=== PATIENT | male | born 1970 | race Caucasian/White ===

== ENCOUNTER 2018-09-06 09:59 | Inpatient (IN) | payer OTHER ==
[2018-09-06 10:38] VITALS: BMI 25.2
--- NOTE | 2018-09-06 11:44 | HP ---
Admission ROS [facility] Chief Complaint: i need help to come in for rehab from alcohol,cocaine and marijuana Allergies/Adverse Reactions: Allergies Allergy/AdvReac Type Severity Reaction Status Date / Time No Known Allergies Allergy Verified 09/06/18 11:19 History of Present Illness: this 48 years old male with alcohol,cocaine and marijuana dependence,for rehab, detox completed at [facility] 09/02/18 09/05/18 completed history of iddm,neuropathy,depression,nicotine dependence, longest period of sobriety is 2 years - Ebola screening Have you traveled outside of the country in the last 21 days: No Have you had contact with anyone from an Ebola affected area: No Have you been sick,other than usual withdrawal symptoms: No Do you have a fever: No - Review of Systems Constitutional: No Symptoms Reported EENT: reports: No Symptoms Reported Respiratory: reports: No Symptoms reported Cardiac: reports: No Symptoms Reported GI: reports: No Symptoms Reported : reports: No Symptoms Reported Musculoskeletal: reports: No Symptoms Reported Integumentary: reports: No Symptoms Reported Neuro: reports: No Symptoms reported Endocrine: reports: No Symptoms Reported, Other (iddm) Hematology: reports: No Symptoms Reported Psychiatric: reports: No Sypmtoms Reported, Judgement Intact, Mood/Affect Appropiate, Depressed Patient History - Patient Medical History Hx Anemia: No Hx Asthma: No Hx Chronic Obstructive Pulmonary Disease (COPD): No Hx Cancer: No Hx Cardiac Disorders: No Hx Congestive Heart Failure: No Hx Hypertension: No Hx Hypercholesterolemia: No Hx Pacemaker: No HX Cerebrovascular Accident: No Hx Seizures: No Hx Dementia: No Hx Diabetes: Yes (IDDM) Hx Gastrointestinal Disorders: No Hx Liver Disease: No Hx Genitourinary Disorders: No Hx Sexually Transmitted Disorders: No Hx Renal Disease (ESRD): No Hx Thyroid Disease: No Hx Human Immunodeficiency Virus (HIV): No (last 2018 negative) Hx Hepatitis C: No Hx Depression: Yes Hx Suicide Attempt: No Hx Schizophrenia: No Other Medical History: no suicidal,no homicidal,neuropathy - Patient Surgical History Past Surgical History: No Hx Neurologic Surgery: No Hx Cataract Extraction: No Hx Cardiac Surgery: No Hx Lung Surgery: No Hx Breast Surgery: No Hx Breast Biopsy: No Hx Abdominal Surgery: No Hx Appendectomy: No Hx Cholecystectomy: No Hx Genitourinary Surgery: No Hx Section: No Hx Orthopedic Surgery: No Anesthesia Reaction: No - PPD History Previous Implant?: Yes Documented Results: Negative w/o proof Implanted On Prior [facility] Admission?: No PPD to be Administered?: Yes - Smoking Cessation Smoking history: Current every day smoker Have you smoked in the past 12 months: Yes Aproximately how many cigarettes per day: 2 Hx Chewing Tobacco Use: No Initiated information on smoking cessation: Yes 'Breaking Loose' booklet given: 09/06/18 - Substance & Tx. History Hx Alcohol Use: Yes Hx Substance Use: Yes Substance Use Type: Alcohol, Cocaine Hx Substance Use Treatment: Yes ([facility] 09/02/18 to 09/05/18) - Substances Abused Crack Route: Smoking Frequency: Daily Amount used: $30-40 Age of first use: 19 Date of Last Use: 09/05/18 Alcohol-beer/rum Route: Oral Frequency: Daily Amount used: 2 cases/2 pts. Age of first use: 13 Date of Last Use: 09/05/18 Family Disease History - Family Disease History Family History: Denies Admission Physical Exam S - Vital Signs Vital Signs: Vital Signs - 24 hr 09/06/18 10:35 Temperature 98 F Pulse Rate 79 Respiratory 18 Rate Blood Pressure 118/72 - Physical General Appearance: Yes: Within Normal Limits HEENTM: Yes: Within Normal Limits, BARBRA, Pharynx Normal Respiratory: Yes: Within Normal Limits, Lungs Clear, Normal Breath Sounds Neck: Yes: Within Normal Limits, Supple, Trachea in good position Breast: Yes: Within Normal Limits Cardiology: Yes: Within Normal Limits, Regular Rhythm, S1, S2 Abdominal: Yes: Normal Bowel Sounds, Non Tender, Flat, Soft Genitourinary: Yes: Within Normal Limits Back: Yes: Within Normal Limits Musculoskeletal: Yes: Within Normal Limits Extremities: Yes: Within Normal Limits, Other (ulcer both big toe left 0.5 cm, right uicer of big toe 0.5 cm,with bluish discoloration of nail) Neurological: Yes: Within Normal Limits, [employer] II-XII NML intact, Fully Oriented, Alert, Motor Strength 5/5 Integumentary: Yes: Within Normal Limits Lymphatic: Yes: Within Normal Limits - Diagnostic (1) Alcohol dependence Current Visit: Yes Status: Acute (2) Cocaine dependence Current Visit: Yes Status: Acute (3) Marijuana dependence Current Visit: Yes Status: Acute (4) IDDM (insulin dependent diabetes mellitus) Current Visit: Yes Status: Chronic (5) Neuropathy Current Visit: Yes Status: Chronic (6) Depression Current Visit: Yes Status: Acute (7) Ulcers of both great toes Current Visit: Yes Status: Acute Cleared for Admission [facility] - Detox or Rehab Claeared for Rehab Admission: Yes [facility] Breath Alcohol Content Breath Alcohol Content: 0 Urine Drug Screen - Results Drug Screen Negative: No Urine Drug Screen Results: THC-Marijuana, ANKIT-Cocaine, BZO-Benzodiazepines Inpatient Rehab Admission - Initial Determination Are CD services needed?: Yes Free of communicable disease: Yes Not in need of hospitalization: Yes - Rehab Admission Criteria Previous failed treatment: Yes Poor recovery environment: Yes Comorbidities: Yes Lacks judgement: No Patient is meeting Inpatient Rehab admission criteria:: Yes
[2018-09-06] MEDS ORDERED: guaiFENesin/D-METHORPHAN HB 10 ML UNIT-DOSE CUPS PO PRN (11:57)
[2018-09-06] MEDS ORDERED: MENTHOL/PHENOL 1 EACH UD MM PRN (11:57)
[2018-09-06] MEDS ORDERED: MAG HYDROX/AL HYDROX/SIMETH 30 ML UNIT-DOSE CUP PO PRN (11:57)
[2018-09-06] MEDS ORDERED: LOPERAMIDE HCL 2 MG CAPSULE PO PRN (11:57)
[2018-09-06] MEDS ORDERED: P-EPHED 60MG/TRIPROLIDI 2.5MG TABLET PO PRN (11:57)
[2018-09-06] MEDS ORDERED: MAGNESIUM CITRATE 300 ML BOTTLE PO PRN (11:57)
[2018-09-06] MEDS ORDERED: MAGNESIUM HYDROX 2400MG/30ML ORAL SUSPENSION 30 ML CUP PO PRN (11:57)
--- NOTE | 2018-09-06 14:08 | HP ---
Psychiatrist Admission - Data Date of interview: 09/06/18 Admission source: [facility] Identifying data: This is the first [facility] admission for this 48 years old single male, unemployedon food stamp, homeless Medical History: Significant for coronary artry disease with stent placement, insulin-dependent diabetes mellitus and neuropathy. Smokes 2 cigarettes daily Psychiatric History: Patient is a very poor, unreliable historian. He ackowledges history of previous psychiatric contacts. First one was for hearing voices and he was prescribed medication. He has no recollection of name of medication. Claims that twice, he was admitted to [facility] psychiatric unit. He could not provide details about both hospitalizations as far as date, reason for admission, diagnosis and medications. Denies ever receiving OPD care. Claims he last saw a psychiatrist recently while in detox @ [facility] and he was prescribed a medication for depression. Again no recollection of name of that medication. Denies previous suicidal attempt. At present, reports feeling mildly depressed and sleeping poorly. Patient was discharged from [facility] yesterday but no referral information is available Physical/Sexual Abuse/Trauma History: Denies history of emotional, physical or sexual abuseas well as DV relationship. No service Additional Comment: Reports history of 2 previous felony arrests/convictions. Reports being currently on parole till June 10, 2019 Vital Signs: Vital Signs - 24 hr 09/06/18 10:35 Temperature 98 F Pulse Rate 79 Respiratory 18 Rate Blood Pressure 118/72 Allergies/Adverse Reactions: Allergies Allergy/AdvReac Type Severity Reaction Status Date / Time No Known Allergies Allergy Verified 09/06/18 11:19 Date of last physical exam: 09/06/18 Concur with the findings of this exam: Yes - Substance Abuse/Tx History Hx Alcohol Use: Yes Hx Substance Use: Yes Substance Use Type: Alcohol (Started drinking akcohol at age 13, consumes 2 pints of rum & 2 cans of beer daily. Last drank on 09/05/18), Cocaine (Started smoking crack cocaine at age 19, consumes $30-40 worth daily. Last smoked on 10/13) Hx Substance Use Treatment: Yes (one recent inpt detox @ [facility]. First inpt rehab) Mental Status Exam - Mental Status Exam Alert and Oriented to: Time, Place, Person Cognitive Function: Fair Patient Appearance: Disheveled Mood: Depressed (mildly) Affect: Appropriate Patient Behavior: Cooperative Speech Pattern: Clear Voice Loudness: Normal Thought Process: Intact, Goal Oriented Thought Disorder: Not Present Hallucinations: Denies Suicidal Ideation: Denies Homicidal Ideation: Denies Insight/Judgement: Fair Sleep: Poorly Appetite: Good Muscle strength/Tone: Normal Gait/Station: Other (Ambulate with mild difficulty due problem with his feet) Psychiatric Findings - Problem List ([place] 1, 2,3) (1) Alcohol dependence Current Visit: Yes Status: Acute (2) Cocaine dependence Current Visit: Yes Status: Acute (3) Nicotine dependence Current Visit: Yes Status: Chronic (4) Psychotic disorder Current Visit: Yes Status: Chronic (5) Substance-induced psychotic disorder Current Visit: Yes Status: Ruled-out (6) Substance induced mood disorder Current Visit: Yes Status: Acute (7) Substance-induced sleep disorder Current Visit: Yes Status: Acute (8) IDDM (insulin dependent diabetes mellitus) Current Visit: Yes Status: Chronic (9) Neuropathy Current Visit: Yes Status: Chronic - Initial Treatment Plan Initial Treatment Plan: 1) Start Seroquel 100 mg po HS. 2) Monitor progress
[2018-09-06] MEDS: SILVER SULFADIAZINE 1% TOP CREAM 50 GM JAR TP SCH ×2 (15:28→22:29)
[2018-09-06] MEDS: INSULIN (NOVOLOG) ASPART 100 UNITS/ML 10ML VIAL SQ SCH ×2 (17:12→21:04)
[2018-09-06] MEDS ORDERED: INSULIN (NOVOLOG) ASPART 100 UNITS/ML 10ML VIAL ONE ×2 (17:56→22:55)
[2018-09-06 18:12] LABS: URINE APPEARANCE CLEAR; URINE BILIRUBIN NEGATIVE (<2.0 mg/dL); URINE COLOR YELLOW; URINE GLUCOSE (UA) 3+ (NEGATIVE); URINE KETONE NEGATIVE (NEGATIVE); URINE LEUK ESTERASE NEGATIVE (NEGATIVE); URINE NITRITE NEGATIVE (NEGATIVE); URINE PROTEIN 1+ (NEGATIVE); URINE UROBILINOGEN NEGATIVE mg/dL (0.2-1.0)
[2018-09-06 18:28] LABS: URINE BACTERIA MANY /hpf (NONE SEEN); URINE HYALINE CAST 3 /lpf; URINE MUCUS RARE
[2018-09-06] MEDS: IBUPROFEN 400 MG TABLET (FP) PO PRN (21:07)
[2018-09-06] MEDS: hydrOXYzine PAMOATE 50 MG CAPSULE (FP) PO PRN (21:07)
[2018-09-06] MEDS: MELATONIN 5 MG TABLETS PO PRN (21:07)
[2018-09-06] MEDS: GABAPENTIN 300 MG CAPSULE (FP) PO SCH (21:07)
[2018-09-06] MEDS: THIAMINE HCL 100 MG TABLET (FP) PO SCH (22:29)
[2018-09-07] MEDS: INSULIN (NOVOLOG) ASPART 100 UNITS/ML 10ML VIAL SQ SCH ×4 (07:06→21:29)
[2018-09-07] MEDS ORDERED: INSULIN (NOVOLOG) ASPART 100 UNITS/ML 10ML VIAL ONE ×3 (07:30→22:19)
[2018-09-07] MEDS: SILVER SULFADIAZINE 1% TOP CREAM 50 GM JAR TP SCH ×2 (10:14→21:29)
[2018-09-07] MEDS: PRENATAL VITAMINS W/ FOLIC ACID TABLET (FP) PO SCH (10:14)
[2018-09-07] MEDS: GABAPENTIN 300 MG CAPSULE (FP) PO SCH ×2 (10:14→21:28)
--- NOTE | 2018-09-07 10:37 | EKG ---
Test Reason : Blood Pressure : / mmHG Vent. Rate : 084 BPM Atrial Rate : 084 BPM P-R Int : 156 ms QRS Dur : 084 ms QT Int : 388 ms P-R-T Axes : 074 101 051 degrees QTc Int : 458 ms NORMAL SINUS RHYTHM RIGHTWARD AXIS ANTEROSEPTAL INFARCT , AGE UNDETERMINED ABNORMAL ECG NO PREVIOUS ECGS AVAILABLE Confirmed by VERA MCPHERSON MD ([id number]) on 09/07/2018 10:36:57 AM Referred By: Confirmed By:VERA MCPHERSON MD
[2018-09-07 11:11] LABS: ALBUMIN 3.8 g/dl (3.4-5.0); ALK PHOS 118 U/L (45-117); ANION GAP 6 MMOL/L (8-16); BILIRUBIN,TOTAL 0.7 mg/dL (0.2-1); BLOOD UREA NITROGEN 22 mg/dL (7-18); CALCIUM 9.3 mg/dL (8.5-10.1); CHLORIDE 98 mmol/L (98-107); CO2 29 mmol/L (21-32); CREATININE 0.9 mg/dL (0.55-1.3); SGOT/AST 20 U/L (15-37); SGPT/ALT 37 U/L (13-61); SODIUM 134 mmol/L (136-145); TOT PROT 7.2 g/dl (6.4-8.2)
[2018-09-07 11:23] LABS: GLUCOSE,RANDOM 377 mg/dL (74-106)
[2018-09-07 11:27] LABS: HEMATOCRIT 43.5 % (35.4-49); HEMOGLOBIN 14.6 GM/dL (11.7-16.9); MCH 30.7 pg (25.7-33.7); MCHC 33.5 g/dl (32.0-35.9); MEAN CELL VOLUME 91.5 fl (80-96); MEAN PLT VOLUME 9.3 fl (7.5-11.1); PLATELET COUNT 288 K/MM3 (134-434); RBC 4.75 M/mm3 (4.00-5.60); RDW 13.6 % (11.9-15.9); WHITE BLOOD COUNT 5.5 K/mm3 (4.0-10.0)
[2018-09-07] MEDS: ACETAMINOPHEN 325 MG TABLET (FP) PO PRN (11:54)
[2018-09-07] MEDS: THIAMINE HCL 100 MG TABLET (FP) PO SCH (21:28)
[2018-09-07] MEDS: hydrOXYzine PAMOATE 50 MG CAPSULE (FP) PO PRN (21:28)
[2018-09-07] MEDS: MELATONIN 5 MG TABLETS PO PRN (21:28)
[2018-09-08] MEDS: INSULIN (NOVOLOG) ASPART 100 UNITS/ML 10ML VIAL SQ SCH ×4 (07:34→22:05)
[2018-09-08] MEDS: GABAPENTIN 300 MG CAPSULE (FP) PO SCH ×2 (10:23→22:02)
[2018-09-08] MEDS: SILVER SULFADIAZINE 1% TOP CREAM 50 GM JAR TP SCH ×2 (10:24→22:03)
[2018-09-08] MEDS: PRENATAL VITAMINS W/ FOLIC ACID TABLET (FP) PO SCH (10:24)
[2018-09-08] MEDS ORDERED: INSULIN (NOVOLOG) ASPART 100 UNITS/ML 10ML VIAL ONE ×3 (11:56→23:12)
[2018-09-08] MEDS: IBUPROFEN 400 MG TABLET (FP) PO PRN (19:30)
[2018-09-08] MEDS: THIAMINE HCL 100 MG TABLET (FP) PO SCH (22:02)
[2018-09-08] MEDS: MELATONIN 5 MG TABLETS PO PRN (22:04)
[2018-09-08] MEDS: ACETAMINOPHEN 325 MG TABLET (FP) PO PRN (23:42)
[2018-09-09] MEDS: IBUPROFEN 400 MG TABLET (FP) PO PRN (01:43)
[2018-09-09] MEDS: INSULIN (NOVOLOG) ASPART 100 UNITS/ML 10ML VIAL SQ SCH ×4 (06:33→21:00)
[2018-09-09] MEDS: GABAPENTIN 300 MG CAPSULE (FP) PO SCH ×2 (10:48→21:00)
[2018-09-09] MEDS: PRENATAL VITAMINS W/ FOLIC ACID TABLET (FP) PO SCH (10:48)
[2018-09-09] MEDS: SILVER SULFADIAZINE 1% TOP CREAM 50 GM JAR TP SCH ×2 (10:48→21:01)
[2018-09-09] MEDS ORDERED: INSULIN (NOVOLOG) ASPART 100 UNITS/ML 10ML VIAL ONE ×2 (11:50→16:22)
--- NOTE | 2018-09-09 14:20 | PN ---
S Progress Note Note: C/O LEGS/FEET PAIN WITH HX PERIPHERAL NEUROPATHY. PT ALSO HAS BOTH GREAT TOES DRESSINGS IN PLACE DUE TO ULCERS. PT REPORTS HE TAKES PERCOCETS FOR PAIN. Vital Signs 09/09/18 07:17 Temperature 97.6 F Pulse Rate 83 Respiratory 18 Rate Blood Pressure 153/99 Laboratory Tests 09/06/18 09/06/18 09/06/18 11:41 17:00 17:11 WBC RBC Hgb Hct MCV MCH MCHC RDW Plt Count MPV Sodium Potassium Chloride Carbon Dioxide Anion Gap BUN Creatinine Creat Clearance w eGFR POC Glucometer 342 443 Random Glucose Calcium Total Bilirubin AST ALT Alkaline Phosphatase Total Protein Albumin Urine Color Yellow Urine Appearance Clear Urine pH 5.0 Ur Specific Mineral 1.031 Urine Protein 1+ H Urine Glucose (UA) 3+ H Urine Ketones Negative Urine Blood Negative Urine Nitrite Negative Urine Bilirubin Negative Urine Urobilinogen Negative Ur Leukocyte Esterase Negative Urine WBC (Auto) 3 Urine RBC (Auto) None Urine Bacteria Many Hyaline Casts 3 Urine Mucus Rare RPR Titer 09/06/18 09/07/18 09/07/18 21:03 06:00 06:00 WBC 5.5 RBC 4.75 Hgb 14.6 Hct 43.5 MCV 91.5 MCH 30.7 MCHC 33.5 RDW 13.6 Plt Count 288 MPV 9.3 Sodium 134 L Potassium 5.0 Chloride 98 Carbon Dioxide 29 Anion Gap 6 L BUN 22 H Creatinine 0.9 Creat Clearance w eGFR > 60 POC Glucometer 359 Random Glucose 377 H* Calcium 9.3 Total Bilirubin 0.7 AST 20 ALT 37 Alkaline Phosphatase 118 H Total Protein 7.2 Albumin 3.8 Urine Color Urine Appearance Urine pH Ur Specific Mineral Urine Protein Urine Glucose (UA) Urine Ketones Urine Blood Urine Nitrite Urine Bilirubin Urine Urobilinogen Ur Leukocyte Esterase Urine WBC (Auto) Urine RBC (Auto) Urine Bacteria Hyaline Casts Urine Mucus RPR Titer 09/07/18 09/07/18 09/07/18 06:00 06:31 11:52 WBC RBC Hgb Hct MCV MCH MCHC RDW Plt Count MPV Sodium Potassium Chloride Carbon Dioxide Anion Gap BUN Creatinine Creat Clearance w eGFR POC Glucometer 162 371 Random Glucose Calcium Total Bilirubin AST ALT Alkaline Phosphatase Total Protein Albumin Urine Color Urine Appearance Urine pH Ur Specific Mineral Urine Protein Urine Glucose (UA) Urine Ketones Urine Blood Urine Nitrite Urine Bilirubin Urine Urobilinogen Ur Leukocyte Esterase Urine WBC (Auto) Urine RBC (Auto) Urine Bacteria Hyaline Casts Urine Mucus RPR Titer Nonreactive 09/07/18 09/07/18 09/08/18 16:45 21:26 06:52 WBC RBC Hgb Hct MCV MCH MCHC RDW Plt Count MPV Sodium Potassium Chloride Carbon Dioxide Anion Gap BUN Creatinine Creat Clearance w eGFR POC Glucometer 319 299 213 Random Glucose Calcium Total Bilirubin AST ALT Alkaline Phosphatase Total Protein Albumin Urine Color Urine Appearance Urine pH Ur Specific Mineral Urine Protein Urine Glucose (UA) Urine Ketones Urine Blood Urine Nitrite Urine Bilirubin Urine Urobilinogen Ur Leukocyte Esterase Urine WBC (Auto) Urine RBC (Auto) Urine Bacteria Hyaline Casts Urine Mucus RPR Titer 09/08/18 09/08/18 09/08/18 11:52 17:18 22:01 WBC RBC Hgb Hct MCV MCH MCHC RDW Plt Count MPV Sodium Potassium Chloride Carbon Dioxide Anion Gap BUN Creatinine Creat Clearance w eGFR POC Glucometer 295 288 322 Random Glucose Calcium Total Bilirubin AST ALT Alkaline Phosphatase Total Protein Albumin Urine Color Urine Appearance Urine pH Ur Specific Mineral Urine Protein Urine Glucose (UA) Urine Ketones Urine Blood Urine Nitrite Urine Bilirubin Urine Urobilinogen Ur Leukocyte Esterase Urine WBC (Auto) Urine RBC (Auto) Urine Bacteria Hyaline Casts Urine Mucus RPR Titer 09/09/18 09/09/18 06:32 11:33 WBC RBC Hgb Hct MCV MCH MCHC RDW Plt Count MPV Sodium Potassium Chloride Carbon Dioxide Anion Gap BUN Creatinine Creat Clearance w eGFR POC Glucometer 230 265 Random Glucose Calcium Total Bilirubin AST ALT Alkaline Phosphatase Total Protein Albumin Urine Color Urine Appearance Urine pH Ur Specific Mineral Urine Protein Urine Glucose (UA) Urine Ketones Urine Blood Urine Nitrite Urine Bilirubin Urine Urobilinogen Ur Leukocyte Esterase Urine WBC (Auto) Urine RBC (Auto) Urine Bacteria Hyaline Casts Urine Mucus RPR Titer LABS NOTED. NAPROSYN 500 MG PO BID FLAXERIL 10 MG PO TID INCREASE PO FLUIDS
[2018-09-09] MEDS: CYCLOBENZAPRINE HCL 10 MG TABLET (FP) PO SCH (21:00)
[2018-09-09] MEDS: THIAMINE HCL 100 MG TABLET (FP) PO SCH (21:00)
[2018-09-09] MEDS: NAPROXEN 500 MG TABLET (FP) PO SCH (21:01)
[2018-09-10] MEDS: CYCLOBENZAPRINE HCL 10 MG TABLET (FP) PO SCH ×3 (06:35→21:37)
[2018-09-10] MEDS: ACETAMINOPHEN 325 MG TABLET (FP) PO PRN (06:37)
[2018-09-10] MEDS: INSULIN (NOVOLOG) ASPART 100 UNITS/ML 10ML VIAL SQ SCH ×4 (06:41→21:39)
[2018-09-10] MEDS: GABAPENTIN 300 MG CAPSULE (FP) PO SCH ×2 (10:16→21:38)
[2018-09-10] MEDS: NAPROXEN 500 MG TABLET (FP) PO SCH ×2 (10:16→21:38)
[2018-09-10] MEDS: PRENATAL VITAMINS W/ FOLIC ACID TABLET (FP) PO SCH (10:16)
[2018-09-10] MEDS: SILVER SULFADIAZINE 1% TOP CREAM 50 GM JAR TP SCH ×2 (10:16→21:39)
[2018-09-10] MEDS ORDERED: INSULIN (NOVOLOG) ASPART 100 UNITS/ML 10ML VIAL ONE ×2 (11:47→22:32)
[2018-09-10] MEDS: THIAMINE HCL 100 MG TABLET (FP) PO SCH (21:37)
[2018-09-10] MEDS: QUEtiapine FUMARATE 100 MG TABLET (FP) PO SCH (21:37)
[2018-09-10] MEDS: MELATONIN 5 MG TABLETS PO PRN (21:37)
[2018-09-11] MEDS: CYCLOBENZAPRINE HCL 10 MG TABLET (FP) PO SCH ×3 (06:30→21:24)
[2018-09-11] MEDS ORDERED: INSULIN (NOVOLOG) ASPART 100 UNITS/ML 10ML VIAL ONE ×3 (07:11→22:04)
[2018-09-11] MEDS: INSULIN (NOVOLOG) ASPART 100 UNITS/ML 10ML VIAL SQ SCH ×4 (07:12→21:24)
[2018-09-11] MEDS: NAPROXEN 500 MG TABLET (FP) PO SCH ×2 (10:18→21:24)
[2018-09-11] MEDS: hydrOXYzine PAMOATE 50 MG CAPSULE (FP) PO PRN (10:18)
[2018-09-11] MEDS: PRENATAL VITAMINS W/ FOLIC ACID TABLET (FP) PO SCH (10:18)
[2018-09-11] MEDS: GABAPENTIN 300 MG CAPSULE (FP) PO SCH ×2 (10:19→21:24)
[2018-09-11] MEDS: SILVER SULFADIAZINE 1% TOP CREAM 50 GM JAR TP SCH ×2 (10:19→21:26)
[2018-09-11] MEDS: ACETAMINOPHEN 325 MG TABLET (FP) PO PRN (12:05)
[2018-09-11] MEDS: THIAMINE HCL 100 MG TABLET (FP) PO SCH (21:24)
[2018-09-11] MEDS: QUEtiapine FUMARATE 100 MG TABLET (FP) PO SCH (21:24)
[2018-09-11] MEDS: MELATONIN 5 MG TABLETS PO PRN (21:26)
[2018-09-12] MEDS: CYCLOBENZAPRINE HCL 10 MG TABLET (FP) PO SCH ×3 (06:05→21:23)
[2018-09-12] MEDS ORDERED: INSULIN (NOVOLOG) ASPART 100 UNITS/ML 10ML VIAL ONE ×2 (06:49→11:59)
[2018-09-12] MEDS: INSULIN (NOVOLOG) ASPART 100 UNITS/ML 10ML VIAL SQ SCH ×4 (06:50→21:24)
[2018-09-12] MEDS: SILVER SULFADIAZINE 1% TOP CREAM 50 GM JAR TP SCH ×2 (10:01→21:24)
[2018-09-12] MEDS: NAPROXEN 500 MG TABLET (FP) PO SCH ×2 (10:01→21:23)
[2018-09-12] MEDS: PRENATAL VITAMINS W/ FOLIC ACID TABLET (FP) PO SCH (10:01)
[2018-09-12] MEDS: GABAPENTIN 300 MG CAPSULE (FP) PO SCH ×2 (10:01→21:23)
[2018-09-12] MEDS: MELATONIN 5 MG TABLETS PO PRN (21:23)
[2018-09-12] MEDS: THIAMINE HCL 100 MG TABLET (FP) PO SCH (21:23)
[2018-09-12] MEDS: QUEtiapine FUMARATE 100 MG TABLET (FP) PO SCH (21:23)
[2018-09-13] MEDS: CYCLOBENZAPRINE HCL 10 MG TABLET (FP) PO SCH ×3 (06:19→21:21)
[2018-09-13] MEDS ORDERED: INSULIN (NOVOLOG) ASPART 100 UNITS/ML 10ML VIAL ONE ×2 (07:09→22:11)
[2018-09-13] MEDS: INSULIN (NOVOLOG) ASPART 100 UNITS/ML 10ML VIAL SQ SCH ×4 (07:09→21:23)
[2018-09-13] MEDS: NAPROXEN 500 MG TABLET (FP) PO SCH ×2 (10:02→21:21)
[2018-09-13] MEDS: hydrOXYzine PAMOATE 50 MG CAPSULE (FP) PO PRN ×3 (10:02→21:22)
[2018-09-13] MEDS: GABAPENTIN 300 MG CAPSULE (FP) PO SCH ×2 (10:02→21:21)
[2018-09-13] MEDS: PRENATAL VITAMINS W/ FOLIC ACID TABLET (FP) PO SCH (10:02)
[2018-09-13] MEDS: SILVER SULFADIAZINE 1% TOP CREAM 50 GM JAR TP SCH ×2 (10:03→21:22)
[2018-09-13] MEDS: THIAMINE HCL 100 MG TABLET (FP) PO SCH (21:21)
[2018-09-13] MEDS: MELATONIN 5 MG TABLETS PO PRN (21:21)
[2018-09-13] MEDS: QUEtiapine FUMARATE 100 MG TABLET (FP) PO SCH (21:21)
[2018-09-14] MEDS: CYCLOBENZAPRINE HCL 10 MG TABLET (FP) PO SCH ×3 (06:07→21:32)
[2018-09-14] MEDS: INSULIN (NOVOLOG) ASPART 100 UNITS/ML 10ML VIAL SQ SCH ×4 (06:47→21:32)
[2018-09-14] MEDS ORDERED: INSULIN (NOVOLOG) ASPART 100 UNITS/ML 10ML VIAL ONE ×3 (07:09→20:26)
[2018-09-14] MEDS: GABAPENTIN 300 MG CAPSULE (FP) PO SCH ×2 (09:56→21:32)
[2018-09-14] MEDS: SILVER SULFADIAZINE 1% TOP CREAM 50 GM JAR TP SCH ×2 (09:56→21:33)
[2018-09-14] MEDS: NAPROXEN 500 MG TABLET (FP) PO SCH ×2 (09:56→21:32)
[2018-09-14] MEDS: PRENATAL VITAMINS W/ FOLIC ACID TABLET (FP) PO SCH (09:56)
[2018-09-14] MEDS: ACETAMINOPHEN 325 MG TABLET (FP) PO PRN ×2 (13:55→23:21)
[2018-09-14] MEDS: QUEtiapine FUMARATE 100 MG TABLET (FP) PO SCH (21:32)
[2018-09-14] MEDS: THIAMINE HCL 100 MG TABLET (FP) PO SCH (21:32)
[2018-09-15] MEDS: CYCLOBENZAPRINE HCL 10 MG TABLET (FP) PO SCH ×3 (06:08→21:31)
[2018-09-15] MEDS: INSULIN (NOVOLOG) ASPART 100 UNITS/ML 10ML VIAL SQ SCH ×4 (06:11→21:32)
[2018-09-15] MEDS ORDERED: INSULIN (NOVOLOG) ASPART 100 UNITS/ML 10ML VIAL ONE ×3 (06:49→17:02)
[2018-09-15] MEDS: GABAPENTIN 300 MG CAPSULE (FP) PO SCH ×2 (10:20→21:30)
[2018-09-15] MEDS: NAPROXEN 500 MG TABLET (FP) PO SCH ×2 (10:20→21:31)
[2018-09-15] MEDS: PRENATAL VITAMINS W/ FOLIC ACID TABLET (FP) PO SCH (10:20)
[2018-09-15] MEDS: SILVER SULFADIAZINE 1% TOP CREAM 50 GM JAR TP SCH ×2 (10:20→21:34)
[2018-09-15] MEDS: QUEtiapine FUMARATE 100 MG TABLET (FP) PO SCH (21:31)
[2018-09-15] MEDS: THIAMINE HCL 100 MG TABLET (FP) PO SCH (21:31)
[2018-09-16] MEDS: CYCLOBENZAPRINE HCL 10 MG TABLET (FP) PO SCH ×3 (06:26→21:17)
[2018-09-16] MEDS ORDERED: INSULIN (NOVOLOG) ASPART 100 UNITS/ML 10ML VIAL ONE ×2 (07:18→12:01)
[2018-09-16] MEDS: INSULIN (NOVOLOG) ASPART 100 UNITS/ML 10ML VIAL SQ SCH ×4 (07:18→21:18)
[2018-09-16] MEDS: NAPROXEN 500 MG TABLET (FP) PO SCH ×2 (10:32→21:17)
[2018-09-16] MEDS: GABAPENTIN 300 MG CAPSULE (FP) PO SCH ×2 (10:32→21:17)
[2018-09-16] MEDS: PRENATAL VITAMINS W/ FOLIC ACID TABLET (FP) PO SCH (10:32)
[2018-09-16] MEDS: SILVER SULFADIAZINE 1% TOP CREAM 50 GM JAR TP SCH ×2 (10:33→21:19)
[2018-09-16] MEDS: ACETAMINOPHEN 325 MG TABLET (FP) PO PRN (14:55)
[2018-09-16] MEDS: QUEtiapine FUMARATE 100 MG TABLET (FP) PO SCH (21:17)
[2018-09-16] MEDS: THIAMINE HCL 100 MG TABLET (FP) PO SCH (21:17)
[2018-09-17] MEDS: CYCLOBENZAPRINE HCL 10 MG TABLET (FP) PO SCH ×3 (06:02→21:14)
[2018-09-17] MEDS: INSULIN (NOVOLOG) ASPART 100 UNITS/ML 10ML VIAL SQ SCH ×4 (06:04→21:13)
[2018-09-17] MEDS ORDERED: INSULIN (NOVOLOG) ASPART 100 UNITS/ML 10ML VIAL ONE ×2 (06:42→11:50)
[2018-09-17] MEDS: GABAPENTIN 300 MG CAPSULE (FP) PO SCH ×2 (10:32→21:13)
[2018-09-17] MEDS: NAPROXEN 500 MG TABLET (FP) PO SCH ×2 (10:33→21:14)
[2018-09-17] MEDS: hydrOXYzine PAMOATE 50 MG CAPSULE (FP) PO PRN ×3 (10:33→21:15)
[2018-09-17] MEDS: PRENATAL VITAMINS W/ FOLIC ACID TABLET (FP) PO SCH (10:33)
[2018-09-17] MEDS: SILVER SULFADIAZINE 1% TOP CREAM 50 GM JAR TP SCH ×2 (10:33→21:15)
[2018-09-17] MEDS: THIAMINE HCL 100 MG TABLET (FP) PO SCH (21:13)
[2018-09-17] MEDS: QUEtiapine FUMARATE 100 MG TABLET (FP) PO SCH (21:14)
[2018-09-18] MEDS: CYCLOBENZAPRINE HCL 10 MG TABLET (FP) PO SCH ×3 (06:27→21:27)
[2018-09-18] MEDS ORDERED: INSULIN (NOVOLOG) ASPART 100 UNITS/ML 10ML VIAL ONE ×4 (07:12→21:29)
[2018-09-18] MEDS: INSULIN (NOVOLOG) ASPART 100 UNITS/ML 10ML VIAL SQ SCH ×4 (07:13→21:30)
[2018-09-18] MEDS: NAPROXEN 500 MG TABLET (FP) PO SCH ×2 (10:22→21:28)
[2018-09-18] MEDS: PRENATAL VITAMINS W/ FOLIC ACID TABLET (FP) PO SCH (10:22)
[2018-09-18] MEDS: GABAPENTIN 300 MG CAPSULE (FP) PO SCH ×2 (10:22→21:27)
[2018-09-18] MEDS: SILVER SULFADIAZINE 1% TOP CREAM 50 GM JAR TP SCH ×2 (10:23→21:29)
[2018-09-18] MEDS: QUEtiapine FUMARATE 100 MG TABLET (FP) PO SCH (21:27)
[2018-09-18] MEDS: THIAMINE HCL 100 MG TABLET (FP) PO SCH (21:28)
[2018-09-19] MEDS: CYCLOBENZAPRINE HCL 10 MG TABLET (FP) PO SCH ×3 (06:31→21:22)
[2018-09-19] MEDS: INSULIN (NOVOLOG) ASPART 100 UNITS/ML 10ML VIAL SQ SCH ×4 (06:33→21:23)
[2018-09-19] MEDS: NAPROXEN 500 MG TABLET (FP) PO SCH ×2 (10:15→21:22)
[2018-09-19] MEDS: SILVER SULFADIAZINE 1% TOP CREAM 50 GM JAR TP SCH ×2 (10:15→21:23)
[2018-09-19] MEDS: PRENATAL VITAMINS W/ FOLIC ACID TABLET (FP) PO SCH (10:15)
[2018-09-19] MEDS: GABAPENTIN 300 MG CAPSULE (FP) PO SCH ×2 (10:15→21:22)
[2018-09-19] MEDS ORDERED: INSULIN (NOVOLOG) ASPART 100 UNITS/ML 10ML VIAL ONE (11:27)
[2018-09-19] MEDS: QUEtiapine FUMARATE 100 MG TABLET (FP) PO SCH (21:22)
[2018-09-19] MEDS: THIAMINE HCL 100 MG TABLET (FP) PO SCH (21:22)
[2018-09-19] MEDS: hydrOXYzine PAMOATE 50 MG CAPSULE (FP) PO PRN (21:22)
[2018-09-20] MEDS: CYCLOBENZAPRINE HCL 10 MG TABLET (FP) PO SCH ×3 (06:36→21:20)
[2018-09-20] MEDS: INSULIN (NOVOLOG) ASPART 100 UNITS/ML 10ML VIAL SQ SCH ×4 (07:06→21:20)
[2018-09-20] MEDS: GABAPENTIN 300 MG CAPSULE (FP) PO SCH ×2 (10:28→21:20)
[2018-09-20] MEDS: NAPROXEN 500 MG TABLET (FP) PO SCH ×2 (10:28→21:20)
[2018-09-20] MEDS: SILVER SULFADIAZINE 1% TOP CREAM 50 GM JAR TP SCH ×2 (10:28→21:21)
[2018-09-20] MEDS: PRENATAL VITAMINS W/ FOLIC ACID TABLET (FP) PO SCH (10:28)
[2018-09-20] MEDS ORDERED: INSULIN (NOVOLOG) ASPART 100 UNITS/ML 10ML VIAL ONE (11:47)
[2018-09-20] MEDS: THIAMINE HCL 100 MG TABLET (FP) PO SCH (21:20)
[2018-09-20] MEDS: QUEtiapine FUMARATE 100 MG TABLET (FP) PO SCH (21:20)
[2018-09-20] MEDS: hydrOXYzine PAMOATE 50 MG CAPSULE (FP) PO PRN (21:21)
[2018-09-20] MEDS: ACETAMINOPHEN 325 MG TABLET (FP) PO PRN (23:29)
[2018-09-21] MEDS: CYCLOBENZAPRINE HCL 10 MG TABLET (FP) PO SCH ×3 (06:25→21:07)
[2018-09-21] MEDS: INSULIN (NOVOLOG) ASPART 100 UNITS/ML 10ML VIAL SQ SCH ×4 (06:49→21:07)
[2018-09-21] MEDS: PRENATAL VITAMINS W/ FOLIC ACID TABLET (FP) PO SCH (10:15)
[2018-09-21] MEDS: NAPROXEN 500 MG TABLET (FP) PO SCH ×2 (10:15→21:07)
[2018-09-21] MEDS: SILVER SULFADIAZINE 1% TOP CREAM 50 GM JAR TP SCH ×2 (10:15→21:08)
[2018-09-21] MEDS: GABAPENTIN 300 MG CAPSULE (FP) PO SCH ×2 (10:15→21:07)
[2018-09-21] MEDS ORDERED: INSULIN (NOVOLOG) ASPART 100 UNITS/ML 10ML VIAL ONE ×2 (11:45→22:09)
[2018-09-21] MEDS: ACETAMINOPHEN 325 MG TABLET (FP) PO PRN (16:36)
[2018-09-21] MEDS: QUEtiapine FUMARATE 100 MG TABLET (FP) PO SCH (21:07)
[2018-09-21] MEDS: THIAMINE HCL 100 MG TABLET (FP) PO SCH (21:07)
[2018-09-21] MEDS: hydrOXYzine PAMOATE 50 MG CAPSULE (FP) PO PRN (21:08)
[2018-09-22] MEDS: CYCLOBENZAPRINE HCL 10 MG TABLET (FP) PO SCH ×3 (06:20→21:09)
[2018-09-22] MEDS: INSULIN (NOVOLOG) ASPART 100 UNITS/ML 10ML VIAL SQ SCH ×4 (06:29→21:08)
[2018-09-22] MEDS: GABAPENTIN 300 MG CAPSULE (FP) PO SCH ×2 (10:19→21:09)
[2018-09-22] MEDS: PRENATAL VITAMINS W/ FOLIC ACID TABLET (FP) PO SCH (10:19)
[2018-09-22] MEDS: ACETAMINOPHEN 325 MG TABLET (FP) PO PRN ×2 (10:19→14:47)
[2018-09-22] MEDS: NAPROXEN 500 MG TABLET (FP) PO SCH ×2 (10:19→21:09)
[2018-09-22] MEDS: SILVER SULFADIAZINE 1% TOP CREAM 50 GM JAR TP SCH ×2 (10:21→21:08)
[2018-09-22] MEDS ORDERED: INSULIN (NOVOLOG) ASPART 100 UNITS/ML 10ML VIAL ONE (11:48)
[2018-09-22] MEDS: THIAMINE HCL 100 MG TABLET (FP) PO SCH (21:08)
[2018-09-22] MEDS: hydrOXYzine PAMOATE 50 MG CAPSULE (FP) PO PRN (21:08)
[2018-09-22] MEDS: QUEtiapine FUMARATE 100 MG TABLET (FP) PO SCH (21:09)
[2018-09-23] MEDS: CYCLOBENZAPRINE HCL 10 MG TABLET (FP) PO SCH ×3 (06:57→21:27)
[2018-09-23] MEDS: INSULIN (NOVOLOG) ASPART 100 UNITS/ML 10ML VIAL SQ SCH ×4 (06:59→21:27)
[2018-09-23] MEDS: SILVER SULFADIAZINE 1% TOP CREAM 50 GM JAR TP SCH ×2 (10:20→21:27)
[2018-09-23] MEDS: PRENATAL VITAMINS W/ FOLIC ACID TABLET (FP) PO SCH (10:20)
[2018-09-23] MEDS: NAPROXEN 500 MG TABLET (FP) PO SCH ×2 (10:20→21:26)
[2018-09-23] MEDS: GABAPENTIN 300 MG CAPSULE (FP) PO SCH ×2 (10:55→21:26)
[2018-09-23] MEDS ORDERED: INSULIN (NOVOLOG) ASPART 100 UNITS/ML 10ML VIAL ONE (12:04)
[2018-09-23] MEDS: THIAMINE HCL 100 MG TABLET (FP) PO SCH (21:26)
[2018-09-23] MEDS: QUEtiapine FUMARATE 100 MG TABLET (FP) PO SCH (21:26)
[2018-09-23] MEDS: ACETAMINOPHEN 325 MG TABLET (FP) PO PRN (23:37)
[2018-09-24] MEDS: CYCLOBENZAPRINE HCL 10 MG TABLET (FP) PO SCH ×3 (06:32→21:09)
[2018-09-24] MEDS: INSULIN (NOVOLOG) ASPART 100 UNITS/ML 10ML VIAL SQ SCH ×4 (06:33→21:10)
[2018-09-24] MEDS: NAPROXEN 500 MG TABLET (FP) PO SCH ×2 (10:14→21:09)
[2018-09-24] MEDS: SILVER SULFADIAZINE 1% TOP CREAM 50 GM JAR TP SCH ×2 (10:14→21:11)
[2018-09-24] MEDS: PRENATAL VITAMINS W/ FOLIC ACID TABLET (FP) PO SCH (10:14)
[2018-09-24] MEDS: GABAPENTIN 300 MG CAPSULE (FP) PO SCH ×2 (10:14→21:09)
[2018-09-24] MEDS ORDERED: INSULIN (NOVOLOG) ASPART 100 UNITS/ML 10ML VIAL ONE ×2 (12:09→22:01)
[2018-09-24] MEDS: THIAMINE HCL 100 MG TABLET (FP) PO SCH (21:09)
[2018-09-24] MEDS: hydrOXYzine PAMOATE 50 MG CAPSULE (FP) PO PRN (21:09)
[2018-09-24] MEDS: QUEtiapine FUMARATE 100 MG TABLET (FP) PO SCH (21:09)
[2018-09-24] MEDS: MELATONIN 5 MG TABLETS PO PRN (21:10)
[2018-09-25] MEDS: CYCLOBENZAPRINE HCL 10 MG TABLET (FP) PO SCH ×3 (06:19→22:02)
[2018-09-25] MEDS: INSULIN (NOVOLOG) ASPART 100 UNITS/ML 10ML VIAL SQ SCH ×4 (06:39→22:04)
[2018-09-25] MEDS: GABAPENTIN 300 MG CAPSULE (FP) PO SCH ×2 (10:23→22:02)
[2018-09-25] MEDS: NAPROXEN 500 MG TABLET (FP) PO SCH ×2 (10:23→22:02)
[2018-09-25] MEDS: PRENATAL VITAMINS W/ FOLIC ACID TABLET (FP) PO SCH (10:23)
[2018-09-25] MEDS: SILVER SULFADIAZINE 1% TOP CREAM 50 GM JAR TP SCH ×2 (10:26→22:04)
[2018-09-25] MEDS ORDERED: INSULIN (NOVOLOG) ASPART 100 UNITS/ML 10ML VIAL ONE ×2 (11:31→20:43)
[2018-09-25] MEDS: THIAMINE HCL 100 MG TABLET (FP) PO SCH (22:02)
[2018-09-25] MEDS: QUEtiapine FUMARATE 100 MG TABLET (FP) PO SCH (22:02)
[2018-09-25] MEDS: MELATONIN 5 MG TABLETS PO PRN (22:03)
[2018-09-26] MEDS: CYCLOBENZAPRINE HCL 10 MG TABLET (FP) PO SCH ×3 (06:30→21:38)
[2018-09-26] MEDS ORDERED: INSULIN (NOVOLOG) ASPART 100 UNITS/ML 10ML VIAL ONE ×3 (07:16→16:42)
[2018-09-26] MEDS: INSULIN (NOVOLOG) ASPART 100 UNITS/ML 10ML VIAL SQ SCH ×4 (07:17→21:37)
[2018-09-26] MEDS: NAPROXEN 500 MG TABLET (FP) PO SCH ×2 (09:47→21:38)
[2018-09-26] MEDS: PRENATAL VITAMINS W/ FOLIC ACID TABLET (FP) PO SCH (09:47)
[2018-09-26] MEDS: GABAPENTIN 300 MG CAPSULE (FP) PO SCH ×2 (09:47→21:38)
[2018-09-26] MEDS: SILVER SULFADIAZINE 1% TOP CREAM 50 GM JAR TP SCH ×2 (09:49→21:38)
[2018-09-26] MEDS: THIAMINE HCL 100 MG TABLET (FP) PO SCH (21:37)
[2018-09-26] MEDS: QUEtiapine FUMARATE 100 MG TABLET (FP) PO SCH (21:38)
[2018-09-26] MEDS: hydrOXYzine PAMOATE 50 MG CAPSULE (FP) PO PRN (21:38)
[2018-09-27] MEDS: CYCLOBENZAPRINE HCL 10 MG TABLET (FP) PO SCH ×3 (06:32→21:12)
[2018-09-27] MEDS ORDERED: INSULIN (NOVOLOG) ASPART 100 UNITS/ML 10ML VIAL ONE ×2 (07:03→11:53)
[2018-09-27] MEDS: INSULIN (NOVOLOG) ASPART 100 UNITS/ML 10ML VIAL SQ SCH ×4 (07:04→21:11)
[2018-09-27] MEDS: NAPROXEN 500 MG TABLET (FP) PO SCH ×2 (10:17→21:12)
[2018-09-27] MEDS: GABAPENTIN 300 MG CAPSULE (FP) PO SCH ×2 (10:17→21:12)
[2018-09-27] MEDS: PRENATAL VITAMINS W/ FOLIC ACID TABLET (FP) PO SCH (10:17)
[2018-09-27] MEDS ORDERED: PT OWN MED DRAWER 7, Y5N ONE (10:18)
[2018-09-27] MEDS: SILVER SULFADIAZINE 1% TOP CREAM 50 GM JAR TP SCH ×2 (10:19→21:13)
[2018-09-27] MEDS: THIAMINE HCL 100 MG TABLET (FP) PO SCH (21:12)
[2018-09-27] MEDS: QUEtiapine FUMARATE 100 MG TABLET (FP) PO SCH (21:12)
[2018-09-28] MEDS ORDERED: INSULIN (NOVOLOG) ASPART 100 UNITS/ML 10ML VIAL ONE ×4 (02:59→21:18)
[2018-09-28] MEDS: CYCLOBENZAPRINE HCL 10 MG TABLET (FP) PO SCH ×3 (06:41→21:19)
[2018-09-28] MEDS: INSULIN (NOVOLOG) ASPART 100 UNITS/ML 10ML VIAL SQ SCH ×4 (06:44→21:18)
[2018-09-28] MEDS: ACETAMINOPHEN 325 MG TABLET (FP) PO PRN (06:45)
[2018-09-28] MEDS ORDERED: PT OWN MED DRAWER 7, Y5N ONE ×2 (09:19→21:20)
[2018-09-28] MEDS: SILVER SULFADIAZINE 1% TOP CREAM 50 GM JAR TP SCH ×2 (10:22→21:21)
[2018-09-28] MEDS: GABAPENTIN 300 MG CAPSULE (FP) PO SCH ×2 (10:22→21:19)
[2018-09-28] MEDS: NAPROXEN 500 MG TABLET (FP) PO SCH ×2 (10:23→21:19)
[2018-09-28] MEDS: PRENATAL VITAMINS W/ FOLIC ACID TABLET (FP) PO SCH (10:23)
[2018-09-28] MEDS: QUEtiapine FUMARATE 100 MG TABLET (FP) PO SCH (21:19)
[2018-09-28] MEDS: THIAMINE HCL 100 MG TABLET (FP) PO SCH (21:19)
[2018-09-29] MEDS: CYCLOBENZAPRINE HCL 10 MG TABLET (FP) PO SCH ×3 (06:28→21:05)
[2018-09-29] MEDS: INSULIN (NOVOLOG) ASPART 100 UNITS/ML 10ML VIAL SQ SCH ×4 (06:29→21:06)
[2018-09-29] MEDS ORDERED: PT OWN MED DRAWER 7, Y5N ONE ×2 (09:01→19:59)
[2018-09-29] MEDS: GABAPENTIN 300 MG CAPSULE (FP) PO SCH ×2 (10:28→21:05)
[2018-09-29] MEDS: NAPROXEN 500 MG TABLET (FP) PO SCH ×2 (10:29→21:05)
[2018-09-29] MEDS: SILVER SULFADIAZINE 1% TOP CREAM 50 GM JAR TP SCH ×2 (10:29→21:07)
[2018-09-29] MEDS: PRENATAL VITAMINS W/ FOLIC ACID TABLET (FP) PO SCH (10:29)
[2018-09-29] MEDS ORDERED: INSULIN (NOVOLOG) ASPART 100 UNITS/ML 10ML VIAL ONE ×3 (11:58→20:41)
[2018-09-29] MEDS ORDERED: THIAMINE HCL 100 MG TABLET (FP) ONE (19:59)
[2018-09-29] MEDS: QUEtiapine FUMARATE 100 MG TABLET (FP) PO SCH (21:05)
[2018-09-29] MEDS: THIAMINE HCL 100 MG TABLET (FP) PO SCH (21:05)
[2018-09-30] MEDS: CYCLOBENZAPRINE HCL 10 MG TABLET (FP) PO SCH ×3 (06:32→21:58)
[2018-09-30] MEDS ORDERED: INSULIN (NOVOLOG) ASPART 100 UNITS/ML 10ML VIAL ONE ×2 (07:05→12:05)
[2018-09-30] MEDS: INSULIN (NOVOLOG) ASPART 100 UNITS/ML 10ML VIAL SQ SCH ×4 (07:07→22:35)
[2018-09-30] MEDS: NAPROXEN 500 MG TABLET (FP) PO SCH ×2 (10:31→21:57)
[2018-09-30] MEDS: GABAPENTIN 300 MG CAPSULE (FP) PO SCH ×2 (10:31→21:57)
[2018-09-30] MEDS: PRENATAL VITAMINS W/ FOLIC ACID TABLET (FP) PO SCH (10:31)
[2018-09-30] MEDS: SILVER SULFADIAZINE 1% TOP CREAM 50 GM JAR TP SCH ×2 (10:32→22:01)
[2018-09-30] MEDS ORDERED: PT OWN MED DRAWER 7, Y5N ONE (10:33)
[2018-09-30] MEDS: ACETAMINOPHEN 325 MG TABLET (FP) PO PRN (17:21)
--- NOTE | 2018-09-30 17:31 | PN ---
S Progress Note Note: Vital Signs Temperature 97.4 F L 09/30/18 07:17 Pulse Rate 109 H 09/30/18 07:17 Respiratory Rate 18 09/30/18 07:17 Blood Pressure 109/79 09/30/18 07:17 O2 Sat by Pulse Oximetry (%) Patient with nausea and vomiting one time dose tigan IM fluids as tolerated continue to monitor
[2018-09-30] MEDS ORDERED: TRIMETHOBENZAMIDE HCL 200MG/2ML INJ IM ONE (18:00)
[2018-09-30] MEDS: THIAMINE HCL 100 MG TABLET (FP) PO SCH (21:58)
[2018-09-30] MEDS: MELATONIN 5 MG TABLETS PO PRN (21:58)
[2018-09-30] MEDS: QUEtiapine FUMARATE 100 MG TABLET (FP) PO SCH (22:01)
[2018-10-01] MEDS: CYCLOBENZAPRINE HCL 10 MG TABLET (FP) PO SCH ×3 (06:42→21:21)
[2018-10-01] MEDS: INSULIN (NOVOLOG) ASPART 100 UNITS/ML 10ML VIAL SQ SCH ×4 (07:08→21:23)
[2018-10-01] MEDS ORDERED: INSULIN (NOVOLOG) ASPART 100 UNITS/ML 10ML VIAL ONE ×2 (07:08→11:48)
[2018-10-01] MEDS: GABAPENTIN 300 MG CAPSULE (FP) PO SCH ×2 (10:05→21:21)
[2018-10-01] MEDS: NAPROXEN 500 MG TABLET (FP) PO SCH ×2 (10:05→21:21)
[2018-10-01] MEDS: PRENATAL VITAMINS W/ FOLIC ACID TABLET (FP) PO SCH (10:05)
[2018-10-01] MEDS: SILVER SULFADIAZINE 1% TOP CREAM 50 GM JAR TP SCH ×2 (10:07→21:23)
[2018-10-01] MEDS ORDERED: PT OWN MED DRAWER 7, Y5N ONE (10:08)
[2018-10-01] MEDS: ACETAMINOPHEN 325 MG TABLET (FP) PO PRN (11:49)
[2018-10-01] MEDS: THIAMINE HCL 100 MG TABLET (FP) PO SCH (21:21)
[2018-10-01] MEDS: QUEtiapine FUMARATE 100 MG TABLET (FP) PO SCH (21:21)
[2018-10-02] MEDS: CYCLOBENZAPRINE HCL 10 MG TABLET (FP) PO SCH ×3 (06:28→21:34)
[2018-10-02] MEDS: INSULIN (NOVOLOG) ASPART 100 UNITS/ML 10ML VIAL SQ SCH ×4 (06:29→21:37)
[2018-10-02] MEDS: SILVER SULFADIAZINE 1% TOP CREAM 50 GM JAR TP SCH ×2 (09:55→21:35)
[2018-10-02] MEDS: NAPROXEN 500 MG TABLET (FP) PO SCH ×2 (09:55→21:34)
[2018-10-02] MEDS: PRENATAL VITAMINS W/ FOLIC ACID TABLET (FP) PO SCH (09:55)
[2018-10-02] MEDS: GABAPENTIN 300 MG CAPSULE (FP) PO SCH ×2 (09:55→21:34)
[2018-10-02] MEDS ORDERED: INSULIN (NOVOLOG) ASPART 100 UNITS/ML 10ML VIAL ONE (11:55)
[2018-10-02] MEDS: THIAMINE HCL 100 MG TABLET (FP) PO SCH (21:34)
[2018-10-02] MEDS: QUEtiapine FUMARATE 100 MG TABLET (FP) PO SCH (21:34)
[2018-10-03] MEDS: CYCLOBENZAPRINE HCL 10 MG TABLET (FP) PO SCH ×3 (06:34→21:25)
[2018-10-03] MEDS: INSULIN (NOVOLOG) ASPART 100 UNITS/ML 10ML VIAL SQ SCH ×4 (06:35→21:24)
[2018-10-03] MEDS ORDERED: INSULIN (NOVOLOG) ASPART 100 UNITS/ML 10ML VIAL ONE ×2 (06:45→11:42)
[2018-10-03] MEDS: PRENATAL VITAMINS W/ FOLIC ACID TABLET (FP) PO SCH (10:08)
[2018-10-03] MEDS: GABAPENTIN 300 MG CAPSULE (FP) PO SCH ×2 (10:08→21:25)
[2018-10-03] MEDS: NAPROXEN 500 MG TABLET (FP) PO SCH ×2 (10:09→21:25)
[2018-10-03] MEDS: SILVER SULFADIAZINE 1% TOP CREAM 50 GM JAR TP SCH ×2 (10:09→21:26)
--- NOTE | 2018-10-03 14:59 | PN ---
S Progress Note Note: Vital Signs Temperature 97.2 F L 10/03/18 06:59 Pulse Rate 106 H 10/03/18 06:59 Respiratory Rate 20 10/03/18 06:59 Blood Pressure 113/72 10/03/18 06:59 O2 Sat by Pulse Oximetry (%) Patient scheduled to complete program 10/04/18. Patient medically stable. Patient to follow up with primary care provider in a week post discharge. If worsening symptoms are present patient to follow up with local emergency department.
[2018-10-03] MEDS: QUEtiapine FUMARATE 100 MG TABLET (FP) PO SCH (21:25)
[2018-10-03] MEDS: THIAMINE HCL 100 MG TABLET (FP) PO SCH (21:25)
[2018-10-04] MEDS: CYCLOBENZAPRINE HCL 10 MG TABLET (FP) PO SCH (06:33)
[2018-10-04] MEDS ORDERED: INSULIN (NOVOLOG) ASPART 100 UNITS/ML 10ML VIAL ONE (07:00)
[2018-10-04] MEDS: INSULIN (NOVOLOG) ASPART 100 UNITS/ML 10ML VIAL SQ SCH (07:01)
[2018-10-04 07:10] VITALS: BP 133/83; PULSE 115; TEMP 97.4
--- NOTE | 2018-10-04 08:51 | PN ---
Psychiatric Progress Note Vital Signs: Vital Signs Period Temp Pulse Resp BP Sys/Marin Pulse Ox Last 24 Hr 97.4 F 115 18-20 133/83 Date of Session: 10/04/18 Chief Complaint:: Discharge visit HPI: Patient addressed Alcohol,Cocaine and Cannabis dependence comorbid with Substance induced mood disorder. ROS: IDDM Current Medications: Active Medications Generic Name Dose Route Start Last Admin Trade Name Freq PRN Reason Stop Dose Admin Acetaminophen 650 mg 09/06/18 11:57 10/01/18 11:49 Tylenol - PO 650 mg Q4H PRN Administration FEVER Al Hydroxide/Mg Hydroxide 30 ml 09/06/18 11:57 09/30/18 17:22 Mylanta Oral Suspension - PO 30 ml Q6H PRN Administration DYSPEPSIA Cyclobenzaprine HCl 10 mg 09/09/18 22:00 10/04/18 06:33 Flexeril - PO 10 mg TID LYNSEY Administration Eucalyptus/Menthol/Phenol/Sorbitol 1 each 09/06/18 11:57 Cepastat Lozenge - MM Q4H PRN SORE THROAT Gabapentin 600 mg 09/06/18 22:00 10/03/18 21:25 Neurontin - PO 600 mg BID LYNSEY Administration Guaifenesin 10 ml 09/06/18 11:57 Robitussin Dm - PO Q6H PRN COUGH Hydroxyzine Pamoate 50 mg 09/06/18 11:57 09/26/18 21:38 Vistaril - PO 50 mg Q4H PRN Administration AGITATION Insulin Aspart 0 units 09/06/18 16:30 10/04/18 07:01 Novolog Vial SQ 4 units ACHS LYNSEY Administration Protocol Loperamide HCl 4 mg 09/06/18 11:57 Imodium - PO Q6H PRN DIARRHEA Magnesium Citrate 300 ml 09/06/18 11:57 Citroma - PO Q48H PRN CONSTIPATION Magnesium Hydroxide 30 ml 09/06/18 11:57 Milk Of Magnesia - PO DAILY PRN CONSTIPATION Melatonin 5 mg 09/06/18 22:00 09/30/18 21:58 Melatonin PO 5 mg HS PRN Administration INSOMNIA Naproxen 500 mg 09/09/18 22:00 10/03/18 21:25 Naprosyn - PO 500 mg BID LYNSEY Administration Multivit/Folic Acid/Iron 1 tab 09/07/18 10:00 10/03/18 10:08 Vitamins ([facility]) - PO 1 tab DAILY LYNSEY Administration Pseudoephedrine/Triprolidine 1 combo 09/06/18 11:57 Actifed - PO TID PRN NASAL CONGESTION Quetiapine Fumarate 100 mg 09/10/18 22:00 10/03/18 21:25 Seroquel - PO 100 mg HS LYNSEY Administration Silver Sulfadiazine 1 applic 09/06/18 14:35 10/03/18 21:26 Silvadene - TP 1 applic BID LYNSEY Administration Thiamine HCl 100 mg 09/06/18 22:00 10/03/18 21:25 Vitamin B1 - PO 100 mg HS LYNSEY Administration Current Side Effect: No Lab tests ordered: No Lab tests reviewed: Yes Provider note:: Patient completed this program today and will continue to address his issues on outpatient basis at [facility] [place].Patient will continue current medications as per plan:Seroquel 100 mg po hs and Neurontin 600 mg po bid.Scripts for 30 days provided. Supportive therapy provided focusing on relapse prevention. Patient is stable for discharge today. Total face to face time:: 30 Mental Status Exam - Mental Status Exam Alert and Oriented to: Time, Place, Person Cognitive Function: Grossly Intact Patient Appearance: Well Groomed Mood: Hopeful, Euthymic Affect: Appropriate, Mood Congruent Patient Behavior: Cooperative Speech Pattern: Clear Voice Loudness: Normal Thought Process: Goal Oriented Thought Disorder: Not Present Hallucinations: Denies Suicidal Ideation: Denies Homicidal Ideation: Denies Insight/Judgement: Fair Sleep: Fair Appetite: Good Muscle strength/Tone: Normal Gait/Station: Normal Psychiatric Treatment Plan - Problem List (1) Alcohol dependence Current Visit: Yes (2) Cocaine dependence Current Visit: Yes (3) Marijuana dependence Current Visit: Yes (4) Substance induced mood disorder Current Visit: Yes (5) Substance-induced sleep disorder Current Visit: Yes (6) IDDM (insulin dependent diabetes mellitus) Current Visit: Yes
[2018-10-04] MEDS ORDERED: PT OWN MED DRAWER 7, Y5N ONE (09:03)
[2018-10-04] MEDS: PRENATAL VITAMINS W/ FOLIC ACID TABLET (FP) PO SCH (09:05)
[2018-10-04] MEDS: GABAPENTIN 300 MG CAPSULE (FP) PO SCH (09:05)
[2018-10-04] MEDS: SILVER SULFADIAZINE 1% TOP CREAM 50 GM JAR TP SCH (09:05)
[2018-10-04] MEDS: NAPROXEN 500 MG TABLET (FP) PO SCH (09:05)
== END 2018-10-04 09:30 | disposition home or self-care (01) | DRG 772 ==
LOC: YASAS 09:59 → Y3W 12:07
PROVIDERS: ADMIT Psychiatry & Neurology Psychiatry; ATTEND Psychiatry & Neurology Psychiatry
PROC: HZ42ZZZ Group Counseling for Substance Abuse Treatment, Cognitive-Behavioral (ICD-10-PCS; principal; 2018-09-06)
DX: F10.20 Alcohol dependence, uncomplicated (principal); F14.20 Cocaine dependence, uncomplicated; F12.20 Cannabis dependence, uncomplicated; F17.210 Nicotine dependence, cigarettes, uncomplicated; F19.24 Other psychoactive substance dependence with psychoactive substance-induced mood disorder; F19.282 Other psychoactive substance dependence with psychoactive substance-induced sleep disorder; F19.259 Other psychoactive substance dependence with psychoactive substance-induced psychotic disorder, unspecified; E11.9 Type 2 diabetes mellitus without complications; Z79.4 Long term (current) use of insulin; G62.9 Polyneuropathy, unspecified
CPT/HCPCS: 36415; 80053; 81003; 81015; 82962; 85027; 86593; 93005; 93010